=== PATIENT | female | born 1965 | race Caucasian/White ===

== ENCOUNTER 2017-04-27 14:20 | Emergency (ER) | payer OTHER ==
[~2017-04-27 14:20] MED LIST: DIPH1TAB36 PO; GABA600T PO; MULTCAP2 PO; PRAV40TA2 PO; PRIL20CA9 PO; ROPI1TAB PO; ZONI1CAP17 PO
[2017-04-27 14:24] VITALS: BP 131/80; PULSE 92; RESP 18; TEMP 97.5; O2SAT 100
--- NOTE | 2017-04-27 15:13 | RADRPT ---
EXAM DATE/TIME: 04/27/2017 14:47 [place] COMPARISON: No previous studies available for comparison. INDICATIONS : Chest pain, short of breath. MEDICAL HISTORY : spot on her lung that is being watcherd. SURGICAL HISTORY : lumbar spine surgery 2004 ENCOUNTER: Initial ACUITY: 1 day PAIN SCORE: 7/10 LOCATION: Bilateral chest FINDINGS: PA and lateral views of the chest demonstrate the lungs to be symmetrically aerated without evidence of mass, infiltrate or effusion. The cardiomediastinal contours are unremarkable. Mild scoliotic cur vature. Prior corpectomy at the thoracolumbar junction. CONCLUSION: No acute disease. Saman Dalal Jr., MD on April 27, 2017 at 15:11 Board Certified Radiologist. This report was verified electronically.
[2017-04-27 17:19] LABS: ALBUMIN 4.2 GM/DL (3.4-5.0); ALT (GPT) 35 U/L (10-53); AST (GOT) 23 U/L (15-37); BICARBONATE 21.4 MEQ/L (21.0-32.0); BLOOD UREA NITROGEN 5 MG/DL (7-18); CALCIUM 9.2 MG/DL (8.5-10.1); CHLORIDE 108 MEQ/L (98-107); CREATININE 0.75 MG/DL (0.50-1.00); GLOMERULAR FILTRATION RATE 81 ML/MIN (>89); GLUCOSE,RANDOM 79 MG/DL (74-106); SODIUM (NA) 138 MEQ/L (136-145)
[2017-04-27 17:22] LABS: ALKALINE PHOSPHATASE 109 U/L (45-117); TOTAL BILIRUBIN ADULT 0.2 MG/DL (0.2-1.0); TOTAL PROTEIN 8.8 GM/DL (6.4-8.2); TROPONIN I LESS THAN 0.02 NG/ML (0.02-0.05)
[2017-04-27] MEDS ORDERED: MULT-65 PO (19:32)
[2017-04-27] MEDS ORDERED: DIPH25TA31 (19:32)
[2017-04-27] MEDS ORDERED: OMEP20CA2 (19:32)
[2017-04-27] MEDS ORDERED: OMEP20TA93 PO (19:32)
[2017-04-27] MEDS ORDERED: ACET25TA4 PO (19:32)
[2017-04-27] MEDS ORDERED: CALCTAB80 PO (19:32)
[2017-04-27 20:36] LABS: BASOPHIL % 0.3 % (0.0-2.0); EOSINOPHIL # 0.1 TH/MM3 (0-0.4); EOSINOPHIL % 1.3 % (0.0-4.0); HEMATOCRIT 42.4 % (35.0-46.0); HEMOGLOBIN 14.2 GM/DL (11.6-15.3); LYMPH % 31.5 % (9.0-44.0); LYMPHOCYTE # 2.6 TH/MM3 (1.0-4.8); MEAN CELL VOLUME 83.5 FL (80.0-100.0); MEAN CORPUSCULAR HEMOGLOBIN 27.9 PG (27.0-34.0); MEAN CORPUSCULAR HGB CONC 33.5 % (32.0-36.0); MEAN PLATELET VOLUME 7.7 FL (7.0-11.0); MONO % 7.2 % (0.0-8.0); MONOCYTE # 0.6 TH/MM3 (0-0.9); NEUT % 59.7 % (16.0-70.0); PLATELET COUNT 308 TH/MM3 (150-450); RED BLOOD COUNT 5.08 MIL/MM3 (4.00-5.30); RED CELL DISTRIBUTION WIDTH 15.3 % (11.6-17.2); WHITE BLOOD COUNT 8.3 TH/MM3 (4.0-11.0)
[2017-04-27 21:00] LABS: INTERNATIONAL NORMALIZED RATIO 1.1 RATIO; PROTHROMBIN TIME - PATIENT 10.7 SEC (9.8-11.6)
[2017-04-27 21:30] LABS: D-DIMER 0.23 MG/L FEU (0.00-0.50)
[2017-04-27] MEDS ORDERED: LIDOCAINE VISCOUS 2% SOLN 15 ML UDC SWISH-SWAL ONE (22:00)
[2017-04-27] MEDS ORDERED: ALUMINUM/MAGNESIUM/SIMETH 30 ML CUP PO ONE (22:00)
[2017-04-27] MEDS ORDERED: DOXY100C PO (22:34)
[2017-04-27] MEDS ORDERED: IBUP1TAB5 PO (22:34)
--- NOTE | 2017-04-27 22:34 | PD ---
HPI . Chest pain Chief Complaint: Chest Pain Time Seen by Provider: 19:26 Travel History International Travel<30 days: No Contact w/Intl Traveler<30days: No Traveled to known affect area: No History of Present Illness HPI 52-year-old female complains of having substernal and right-sided chest pain burning sensation radiating through to the back of relatively sudden onset today. 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 Patient does note worsening with deep breath and also lying back supine. Patient denies any change with eating or swallowing, denies any recent change in exercise tolerance, has no recent sedentary. Or confining travel, denies any recent leg pain or swelling. Denies fever chills sweats or cough or any significant dyspnea on exertion or shortness of breath PFSH Past Medical History Narrative Medical Past medical history reviewed High Cholesterol: Yes Diminished Hearing: No Insomnia: Yes Seizures: Yes ?: Not Past Surgical History Gynecologic Surgery: Yes (Total hystorectomy) Hysterectomy: Yes (total) Other Surgery: Yes (2005 Back surgery) Social History Alcohol Use: Yes (occ) Tobacco Use: No Substance Use: No Allergies-Medications (Allergen,Severity, Reaction): Coded Allergies: hydrocodone (Unverified Allergy, Intermediate, Hives, 10/07/16) Reported Meds & Prescriptions Reported Meds & Active Scripts Active Pravastatin 40 Mg Tab 40 Mg PO HS Reported Acetaminophen Pm Caplet (Acetaminophen/Diphenhydramine) 500 Mg-25 Mg Tablet Calcium 1000 + D (Calcium Carbonate-Cholecalciferol) 1,000-800 Mg-Unit Tab 1 Tab PO Multi-Vitamin Daily (Multiple Vitamin) 1 Tab Tab 1 Tab PO DAILY Omeprazole 20 Mg Tab 20 Mg PO DAILY Zonegran (Zonisamide) 100 Mg Cap 400 Mg PO HS Ropinirole 1 Mg Tab 1 Mg PO HS Gabapentin 600 Mg Tab 600 Mg PO TID Narrative Medication Allergies and medications reviewed Review of Systems Except as stated in HPI: all other systems reviewed are Neg General / Constitutional: No: Fever Eyes: No: Visual changes HENT: No: Headaches Cardiovascular: Positive: Chest Pain or Discomfort Respiratory: No: Cough, Shortness of Breath, Wheezing, Sneezing, Orthopnea, Hemoptysis, Stridor Gastrointestinal: No: Abdominal Pain Genitourinary: No: Dysuria Musculoskeletal: No: Pain Skin: No Rash Neurologic: No: Weakness Psychiatric: No: Depression Endocrine: No: Polydipsia Hematologic/Lymphatic: No: Easy Bruising Physical Exam Narrative GENERAL: Awake and alert oriented 3 no acute distress. Vital signs afebrile normal and stable. SKIN: Warm and dry. Color is normal diaphoresis cyanosis or pallor HEAD: Atraumatic. Normocephalic. EYES: Pupils equal and round. No scleral icterus. No injection or drainage. ENT: No nasal bleeding or discharge. Mucous membranes pink and moist. NECK: Trachea midline. No JVD. Supple nontender full range of motion CARDIOVASCULAR: Regular rate and rhythm. S1-S2 no murmurs rubs or gallops RESPIRATORY: No accessory muscle use. Clear to auscultation. Breath sounds equal bilaterally. GASTROINTESTINAL: Abdomen soft, non-tender, nondistended. Hepatic and splenic margins not palpable. MUSCULOSKELETAL: Extremities without clubbing, cyanosis, or edema. No obvious deformities. NEUROLOGICAL: Awake and alert. No obvious cranial nerve deficits. Motor grossly within normal limits. Five out of 5 muscle strength in the arms and legs. Normal speech. PSYCHIATRIC: Appropriate mood and affect; insight and judgment normal. Data Data Last Documented VS Vital Signs Date Time Temp Pulse Resp B/P (MAP) Pulse Ox O2 Delivery O2 Flow Rate FiO2 04/27/17 19:21 20 Room Air 04/27/17 14:24 97.5 92 131/80 (97) 100 Orders Orders Electrocardiogram (04/27/17 14:25) Ckmb (Isoenzyme) Profile (04/27/17 14:25) Complete Blood Count With Diff (04/27/17 14:25) Comprehensive Metabolic Panel (04/27/17 14:25) Magnesium (Mg) (04/27/17 14:25) Troponin I (04/27/17 14:25) Lipase (04/27/17 14:25) Chest, Pa & Lat (04/27/17 14:25) D-Dimer (04/27/17 19:30) Act Partial Throm Time (Ptt) (04/27/17 19:30) Prothrombin Time / Inr (Pt) (04/27/17 19:30) Al-Mag Hy-Si 40-40-4 Mg/Ml Liq (Mag-Al P (04/27/17 22:00) Lidocaine 2% Viscous (Xylocaine 2% Visco (04/27/17 22:00) Labs Laboratory Tests Test 04/27/17 16:04 04/27/17 20:10 Blood Urea Nitrogen 5 MG/DL Creatinine 0.75 MG/DL Random Glucose 79 MG/DL Total Protein 8.8 GM/DL Albumin 4.2 GM/DL Calcium Level 9.2 MG/DL Magnesium Level 2.0 MG/DL Alkaline Phosphatase 109 U/L Aspartate Amino Transf (AST/SGOT) 23 U/L Alanine Aminotransferase (ALT/SGPT) 35 U/L Total Bilirubin 0.2 MG/DL Sodium Level 138 MEQ/L Potassium Level 3.1 MEQ/L Chloride Level 108 MEQ/L Carbon Dioxide Level 21.4 MEQ/L Anion Gap 9 MEQ/L Estimat Glomerular Filtration Rate 81 ML/MIN Total Creatine Kinase 90 U/L Troponin I LESS THAN 0.02 NG/ML Lipase 320 U/L White Blood Count 8.3 TH/MM3 Red Blood Count 5.08 MIL/MM3 Hemoglobin 14.2 GM/DL Hematocrit 42.4 % Mean Corpuscular Volume 83.5 FL Mean Corpuscular Hemoglobin 27.9 PG Mean Corpuscular Hemoglobin Concent 33.5 % Red Cell Distribution Width 15.3 % Platelet Count 308 TH/MM3 Mean Platelet Volume 7.7 FL Neutrophils (%) (Auto) 59.7 % Lymphocytes (%) (Auto) 31.5 % Monocytes (%) (Auto) 7.2 % Eosinophils (%) (Auto) 1.3 % Basophils (%) (Auto) 0.3 % Neutrophils # (Auto) 5.0 TH/MM3 Lymphocytes # (Auto) 2.6 TH/MM3 Monocytes # (Auto) 0.6 TH/MM3 Eosinophils # (Auto) 0.1 TH/MM3 Basophils # (Auto) 0.0 TH/MM3 CBC Comment DIFF FINAL Differential Comment Prothrombin Time 10.7 SEC Prothromb Time International Ratio 1.1 RATIO Activated Partial Thromboplast Time 29.6 SEC D-Dimer Quantitative (PE/DVT) 0.23 MG/L FEU [facility] Medical Decision Making Medical Screen Exam Complete: Yes Emergency Medical Condition: Yes Medical Record Reviewed: Yes Differential Diagnosis Chest pain, atypical chest pain, reflux esophagitis, unstable angina, pulmonary embolus, pleuritis, pneumothorax spontaneous, pneumonia, shingles, chest wall pain, chest wall strain, infection Narrative Course Patient's EKG is nonischemic normal sinus rhythm 82 bpm intervals normal i Laboratory examinations reviewed, no significant abnormalities. Patient's troponin is normal and d-dimer is within normal limits. Chest x-ray no acute infiltrate no pneumothorax Patient's chest pain localized to right lateral midaxillary line with tenderness after receiving Maalox lidocaine orally. Probable mild reflux with chest wall tenderness concomitantly but unrelated. Patient has no skin hypersensitivity has no rash. Inflammation of chest wall versus possible early infection. Patient be treated with anti-inflammatories with a prescription for doxycycline, to follow-up with her physician for recheck tomorrow Diagnosis Primary Impression: Chest wall pain Patient Instructions: Chest Wall Pain (ED), General Instructions Additional Instructions: Ibuprofen 400 mg every 8 hours as needed for pain. Doxycycline 100 mg twice daily for 10 days for possible skin infection. Follow-up with your doctor for recheck tomorrow. Return promptly for worsening Scripts Doxycycline Hyclate (Doxycycline Hyclate) 100 Mg Cap 100 MG PO BID for Infection, #20 CAP 0 Refills Prov: Gerson Del Rio MD 04/27/17 Ibuprofen (Ibuprofen) 400 Mg Tab 400 MG PO Q8H Y for PAIN SCALE 1 TO 10, #15 TAB 0 Refills Prov: Gerson Del Rio MD 04/27/17 Disposition: 01 DISCHARGE HOME Condition: Stable Gerson Del Rio MD Apr 27, 2017 22:34
--- NOTE | 2017-04-28 14:20 | EKG ---
Date Performed: 04/27/2017 Time Performed: 15:19:18 PTAGE: 52 years EKG: Sinus rhythm NORMAL ECG NO PREVIOUS TRACING DOCTOR: Diego Granados Interpretating Date/Time 04/28/2017 14:20:22
== END 2017-04-27 22:43 | disposition home or self-care (01) ==
LOC: NEPE 14:20
DX: R07.89 Other chest pain (principal); E78.00 Pure hypercholesterolemia, unspecified; Z79.899 Other long term (current) drug therapy
CPT/HCPCS: 71046; 80053; 82550; 83690; 83735; 84484; 85025; 85379; 85610; 85730; 93005; 99285